=== PATIENT | male | born 1990 | race Two or more races ===

== ENCOUNTER 2018-03-29 08:48 | Day surgery (SDC) | payer OTHER ==
[2018-03-29] MEDS ORDERED: MIDAZOLAM 1 MG/ML 2 ML INJ (10:31)
[2018-03-29] MEDS ORDERED: PROPOFOL 40 ML (10:31)
[2018-03-29] MEDS ORDERED: PROPOFOL 20 ML (11:20)
== END 2018-03-29 12:59 | disposition home or self-care (01) ==
LOC: GIL 08:48
DX: K29.70 Gastritis, unspecified, without bleeding (principal); K21.0 Gastro-esophageal reflux disease with esophagitis; K51.90 Ulcerative colitis, unspecified, without complications; K63.5 Polyp of colon; K64.8 Other hemorrhoids; K64.4 Residual hemorrhoidal skin tags
CPT/HCPCS: 43239; 88305; 88312; 88313